=== PATIENT | female | born 2000 | race Two or more races ===

== ENCOUNTER → 2024-10-05 | Outpatient (CLI) | payer MEDICAID ==
[2024-10-05 12:41] LABS: Basophils # (auto) 0 10 ^3/uL (0-0.2); Basophils % (auto) 0.2 % (0.0-2.0); Eosinophils # (auto) 0 10 ^3/uL (0-0.8); Eosinophils % (auto) 0.3 % (0.0-7.0); Hematocrit 40.3 % (36.0-46.0); Hemoglobin 13.7 g/dL (12.2-16.2); Lymphocytes # (auto) 1.6 10 ^3/uL (0.4-5.4); Lymphocytes % (auto) 15.2 % (10.0-50.0); Mean Corpuscular Hemoglobin 29.7 pg (28.0-32.0); Mean Corpuscular Volume 87.5 fL (80.0-100.0); Monocytes # (auto) 0.4 10 ^3/uL (0-1.3); Neutrophils # (auto) 8.4 10 ^3/uL (1.6-8.6); Neutrophils % (auto) 80.3 % (37.0-80.0); Platelet Count (auto) 346 10^3/uL (140-450); Red Cell Distribution Width 13.3 % (11.8-14.3); White Blood Cell 10.5 10^3/uL (4.4-10.8)
[2024-10-05 12:43] LABS: Thyroid Stimulating Hormone 1.26 uIU/mL (0.55-4.78)
[2024-10-05 12:46] LABS: Alanine Aminotransferase 12 U/L (7-40); Alkaline Phosphatase 49 U/L (46-116); Anion Gap 10 (5-15); BUN/Creatinine Ratio 11.1 (10.0-20.0); Calcium 9.9 mg/dL (8.7-10.4); Carbon Dioxide 25 mmol/L (20-31); Chloride 103 mmol/L (98-107); Glucose 78 mg/dL (74-106); Sodium 138 mmol/L (136-145)
[2024-10-05 12:47] LABS: Albumin 4.7 g/dL (3.2-4.8); Aspartate Aminotransferase 14 U/L (13-40); Bilirubin, Total 0.4 mg/dL (0.2-1.0); Total Protein 7.3 g/dL (5.7-8.2)
[2024-10-05 12:49] LABS: Blood Urea Nitrogen 7 mg/dL (9-23); Potassium 3.4 mmol/L (3.5-5.1)
[2024-10-05 12:52] LABS: Beta HCG, Quantitative > 200000.0 mIU/mL (1.5-4.2)
[2024-10-06 07:07] LABS: RPR Non Reactive (Non Reactive); Varicella Zoster IgG Antibody Reactive (Non Reactive)
[2024-10-06 15:45] LABS: Triglycerides 75 mg/dL (< 150)
[2024-10-06 15:46] LABS: Cholesterol 180 mg/dL (< 200)
[2024-10-06 15:47] LABS: HDL Cholesterol 55 mg/dL (40-59)
[2024-10-06 15:53] LABS: LDL Cholesterol 119 mg/dL (< 100)
[2024-10-06 16:14] LABS: Opiate Scree,Urine Neg (NEGATIVE)
[2024-10-06 16:15] LABS: Amphetamine Screen, Urine Neg (NEGATIVE); Barbiturate Scree,Urine Neg (NEGATIVE); Benzodiazephine Screen, Urine Neg (NEGATIVE); Cannabinoid Screen, Urine Neg (NEGATIVE); Cocaine Screen, Urine Neg (NEGATIVE); Phencyclidine Screen, Urine Neg (NEGATIVE)
[2024-10-07 00:07] LABS: Chlamydia Trachomatis, NAA Negative (Negative); Neisseria gonorrhoeae, NAA Negative (Negative)
== END | disposition home or self-care (01) ==
LOC: LAB 11:14
PROVIDERS: ATTEND Obstetrics & Gynecology
DX: O23.40 Unspecified infection of urinary tract in pregnancy, unspecified trimester (principal); Z31.430 Encounter of female for testing for genetic disease carrier status for procreative management; Z36.0 Encounter for antenatal screening for chromosomal anomalies; N39.0 Urinary tract infection, site not specified; Z3A.00 Weeks of gestation of pregnancy not specified
CPT/HCPCS: 36415; 80053; 80061; 80307; 83036; 84439; 84443; 84702; 85025; 86592; 86703; 86762; 86787; 86850; 86900; 86901; 87086; 87340; 87902

== ENCOUNTER 2025-04-03 12:30 | Observation (INO) | payer MEDICAID ==
[~2025-04-03] VITALS: Ht 160 cm; Wt 59.0 kg
[2025-04-03] MEDS ORDERED: PREN-96 PO (13:55)
[2025-04-03] MEDS ORDERED: ACETAMINOPHEN 500 MG TAB or CAP PO ONE (14:15)
[2025-04-03 14:27] LABS: Vaginal Bacteria Few; Vaginal Clue Cells Few; Vaginal Epithelial Cells Few; Vaginal Trichomonas Not Present
[2025-04-03 14:28] LABS: Urine Protein, UAD 1+ (Negative)
--- NOTE | 2025-04-03 14:43 | DVH ---
EXAM DESCRIPTION: Chest 1 View CLINICAL HISTORY: Fever of unknown origin COMPARISON: None FINDINGS and IMPRESSION: Lines, tubes, and support devices: None. Lungs / Pleura: No consolidation. No pleural effusion. No pneumothorax. Mediastinum: Normal cardiomediastinal silhouette. Osseous structures / Soft tissues: No acute findings.
[2025-04-03 15:17] LABS: Hematocrit 36.1 % (36.0-46.0); Hemoglobin 12.4 g/dL (12.2-16.2); Mean Corpuscular Hemoglobin 30.5 pg (28.0-32.0); Mean Corpuscular Volume 88.7 fL (80.0-100.0); Nucleated Red Blood Cells % 0.0 %
[2025-04-03] MEDS: LACTATED RINGER'S 1,000 ML IV ONE (15:18)
[2025-04-03 15:20] VITALS: TEMP 102
[2025-04-03] MEDS: ACETAMINOPHEN 500 MG TAB or CAP PO ONE (15:20)
--- NOTE | 2025-04-03 15:20 | DVH ---
EXAM DESCRIPTION: US OB ULTRASOUND COMP GTR 14 WKS CLINICAL HISTORY: tachycardia COMPARISON: None TECHNIQUE: Multiple real-time and static images of the gravid uterus were obtained utilizing color Doppler vascu larity when appropriate. FINDINGS: A single viable fetus is identified in a cephalic presentation. The presenting part is the head . The placenta is in a anterior location. There is no evidence of placenta previa. The amniotic fluid volume is normal. The amniotic fluid index is 20.6 cm. The cervical length is 4.0 cm. BPD 8.3 cm - 33 weeks 2 days Head circumference 28.8 cm - 31 weeks 5 days Body circumference 27.3 cm - 31 weeks 2 days Femur length 6.0 cm - 31 weeks 2 days. The estimated body weight is 1778 g. The heart rate is 163 bpm and the cardiac rhythm is normal. The average sonographic gestational age is 31 weeks and 6 days. IMPRESSION: 1. Single viable intrauterine of 31 weeks and 6 days by sonographic criteria. 2. Ultrasonically estimated date of confinement is 05/30/25. 3. No evidence of placenta previa or abruption.
--- NOTE | 2025-04-03 15:25 | DVH ---
BIOPHYSICAL PROFILE HISTORY: Tachycardia TECHNIQUE: Multiple transabdominal real-time grayscale sonographic images through the gravid uterus o f the fetus with duplex doppler color flow and M-mode spectral analysis FINDINGS: BIOPHYSICAL PROFILE: breathing score: 2 movement score: 2 tone score: 2 Quantitative NIGHAT score: 2 (NIGHAT: 20.6 cm.) Total score: 8/8 Single live fetus in cephalic presentation. heart rate 159-171 beats per minute. Anterior placenta without previa or abruption Biophysical profile score 8/8 corresponding to an DB of 05/20/25 IMPRESSION: Biophysical profile score: 8/8
[2025-04-03 15:31] LABS: Alanine Aminotransferase 12 U/L (7-40); Albumin 3.5 g/dL (3.2-4.8); Alkaline Phosphatase 107 U/L (46-116); Anion Gap 11 (5-15); Bilirubin, Total 0.4 mg/dL (0.2-1.0); Carbon Dioxide 21 mmol/L (20-31); Chloride 104 mmol/L (98-107); Potassium 3.7 mmol/L (3.5-5.1)
[2025-04-03 15:40] LABS: Glucose 73 mg/dL (74-106); Sodium 136 mmol/L (136-145)
[2025-04-03 15:41] LABS: BUN/Creatinine Ratio 10.4 (10.0-20.0); Blood Urea Nitrogen < 5 mg/dL (9-23); Calcium 8.4 mg/dL (8.7-10.4); Total Protein 5.7 g/dL (5.7-8.2)
[2025-04-03] MEDS ORDERED: CEPH500C PO (16:02)
[2025-04-03] MEDS ORDERED: MET500T PO (16:03)
[2025-04-03] MEDS: cefTRIAXone 1GM/50ML D5W 50 ML IV ONE (16:14)
--- NOTE | 2025-04-03 18:01 | DVHDS2 ---
Physician Discharge Progress N Final Diagnosis: Acute Cystitis Febrile illness Secondary Diagnosis: bacterial vaginosis Operations or Procedures: Operations or Procedures NST, OB ultrasound, BPP CXR IV fluids labs Condition on Discharge: Good Disposition: Home Discharge Instructions: Diet: Regular Activity: No Restrictions, As Tolerated Follow Up/Referral: as scheduled Medications: IV Rocephin given 1gm x 1 dose, rx to home with Keflex 500mg QID x 7d. Follow Up Care: Discharge Statement: "Patient was advised to return to the ER or call 911 if any headaches, dizziness, shortness of breath, chest pain, abdominal pain, bleeding, fevers, or worsening of medical condition. Patient was counseled about treatment plan, medications, possible side effects, patientverbalized understanding. All questions were answered to the best of my ability. This discharge took greater then 30 minutes in planning, reviewing documentation, counseling the patient, and discussing with other team members." Visit Coding OBGYN Date of Service: Apr 03, 2025 Billing Provider: SHIREEN TAM DO GUI DEVELOPER Common Visit Codes: [id number] INP/OBS CARE (HIGH) GUI DEVELOPER Procedure Codes: 73759-66- NON-STRESS TEST SHIREEN TAM DO Apr 03, 2025 18:01
== END 2025-04-03 17:18 | disposition home or self-care (01) ==
LOC: LDRP 12:30 → UNDOADMOB 12:30 → OVERFLOW 12:30
PROVIDERS: ADMIT Obstetrics & Gynecology; ATTEND Obstetrics & Gynecology
DX: O23.13 Infections of bladder in pregnancy, third trimester (principal); N30.00 Acute cystitis without hematuria; B96.89 Other specified bacterial agents as the cause of diseases classified elsewhere; Z3A.33 33 weeks gestation of pregnancy; Z79.899 Other long term (current) drug therapy; Z98.890 Other specified postprocedural states
CPT/HCPCS: 36415; 59025; 71045; 76805; 76819; 80053; 81001; 81002; 85025; 87040; 87086; 87210; 94760; 96360; 96361; G0378; J0696; J7030

== ENCOUNTER 2025-04-06 20:34 | Observation (INO) | payer MEDICAID ==
[~2025-04-06 20:34] MED LIST: CEPH500C PO; MET500T PO; PREN-96 PO
--- NOTE | 2025-04-06 21:18 | DVHDS2 ---
Physician Discharge Progress N Final Diagnosis: BV/UTI Operations or Procedures: Operations or Procedures S: 24yo IUP@33.5wks presents to OB triage with c/o constant vaginal burning after being dx with BV/UTI on Saturday04/03/25 when she received IV rochephin and had a fever. Taking flagyl/keflex/azo. +FM, denies UCs/LOF/VB. PNC with FARHAT Grossman at [facility] office, uncomplicated. O: VSS, afebrile urine culture ordered NST reactive Negative for CVA tenderness bilaterally Laboratory Tests Test 04/06/25 21:20 04/06/25 21:25 Range/Units Chlamydia trachomatis (DELONTE) Pending Neisseria gonorrhoeae (DELONTE) Pending Vaginal WBC (Wet Prep) Moderate Vaginal RBC (Wet Prep) Few Vaginal Epithelial Cells (Wet Prep) Moderate Vaginal Bacteria (Wet Prep) Moderate Vaginal Trichomonas (Wet Prep) Not present Vaginal Yeast (Wet Prep) None seen Vaginal Clue Cells (Wet Prep) None seen A: 24yo IUP@33.5wks BV UTI P: D/C home Recommended taking daily OTC womens probiotic supplement. FKC/PTL precautions reviewed f/u with Anupama at [facility] OB on 04/12/25 Dr. Mills consulted, agrees with POC. Other Interventions Other Interventions [place] [id number] Ph: [phone] DIAGNOSTIC IMAGING Diagnostic Imaging Report : [id number] Signed PATIENT: NUPUR TAYLOR HACCT: [id number] UNIT: [id number] : 2000 LOC: [facility] ROOM / BED: TRIAGE1 / A AGE / SEX: 24 / F ADM STATUS: ADM IN SERVICE 15 ORDERING PHYSICIAN: GISSELLE ROSARIO CNM PROCEDURE(s): KIDUS - KIDNEY REASON: bilateral kidney sono to rule out kidney stones ORDER NUMBER(s): [id number], ACCESSION NUMBER(s): [id number] INDICATION: bilateral kidney sono to rule out kidney stones TECHNIQUE: Multiple real-time sonographic images of the kidneys and bladder were obtained. COMPARISON: None FINDINGS: The right kidney measures 9.8 cm in length, which is normal in size. There is normal echogenicity of the right kidney. No hydronephrosis. The left kidney measures 9.1 cm in length, which is normal in size. There is normal echogenicity of the left kidney. No hydronephrosis. Contracted appearance of the bladder. IMPRESSION: 1. No acute sonographic abnormality identified. ATED BY: NIKHIL ELLIOTT MD DICTATED DATE/TIME: 04/06/252205 SIGNED BY: NIKHIL ELLIOTT MD SIGNED DATE/TIME: 04/06/252205 CC: Condition on Discharge: Stable Disposition: Home Discharge Instructions: Diet: Regular Activity: No Restrictions, As Tolerated Medications: see med list Follow Up Care: Specialist: f/u giovani Altman at [facility] on 04/12/25 Discharge Statement: "Patient was advised to return to the ER or call 911 if any headaches, dizziness, shortness of breath, chest pain, abdominal pain, bleeding, fevers, or worsening of medical condition. Patient was counseled about treatment plan, medications, possible side effects, patientverbalized understanding. All questions were answered to the best of my ability. This discharge took greater then 30 minutes in planning, reviewing documentation, counseling the patient, and discussing with other team members." Visit Coding OBGYN Date of Service: Apr 07, 2025 Billing Provider: GISSELLE ROSARIO CNM STAFF ANESTHETIST Common Visit Codes: 30326-ISVWPAE OBS CARE (HIGH) STAFF ANESTHETIST Procedure Codes: 34314-34- NON-STRESS TEST GISSELLE ROSARIO CNM Apr 06, 2025 21:18
--- NOTE | 2025-04-06 22:09 | DVH ---
INDICATION: bilateral kidney sono to rule out kidney stones TECHNIQUE: Multiple real-time sonographic images of the kidneys and bladder were obtained. COMPARISON: None FINDINGS: The right kidney measures 9.8 cm in length, which is normal in size. There is normal echoge nicity of the right kidney. No hydronephrosis. The left kidney measures 9.1 cm in length, which is normal in size. There is normal echogenicity of t he left kidney. No hydronephrosis. Contracted appearance of the bladder. IMPRESSION: 1. No acute sonographic abnormality identified.
[2025-04-06 22:14] LABS: Vaginal Bacteria Moderate; Vaginal Clue Cells None Seen; Vaginal Epithelial Cells Moderate; Vaginal Trichomonas Not Present
[2025-04-08 15:07] LABS: Chlamydia Trachomatis, NAA Negative (Negative); Neisseria gonorrhoeae, NAA Negative (Negative)
== END 2025-04-06 23:33 | disposition home or self-care (01) ==
LOC: LDRP 20:34
PROVIDERS: ADMIT Obstetrics & Gynecology; ATTEND Obstetrics & Gynecology
DX: O23.43 Unspecified infection of urinary tract in pregnancy, third trimester (principal); N39.0 Urinary tract infection, site not specified; O23.593 Infection of other part of genital tract in pregnancy, third trimester; B96.89 Other specified bacterial agents as the cause of diseases classified elsewhere; Z3A.33 33 weeks gestation of pregnancy; Z98.890 Other specified postprocedural states; Z79.899 Other long term (current) drug therapy
CPT/HCPCS: 59025; 76775; 81002; 87086; 87210; 87491; 87591; 94760; G0378

== ENCOUNTER → 2025-04-16 | Outpatient (CLI) | payer MEDICAID ==
[2025-04-16 11:33] LABS: Hematocrit 36.8 % (36.0-46.0); Hemoglobin 12.9 g/dL (12.2-16.2); Mean Corpuscular Hemoglobin 31.0 pg (28.0-32.0); Mean Corpuscular Volume 88.5 fL (80.0-100.0); Nucleated Red Blood Cells % 0.0 %
[2025-04-18 00:10] LABS: Chlamydia Trachomatis, NAA Negative (Negative); Neisseria gonorrhoeae, NAA Negative (Negative)
== END | disposition home or self-care (01) ==
LOC: LAB 11:13
DX: Z34.80 Encounter for supervision of other normal pregnancy, unspecified trimester (principal); Z3A.00 Weeks of gestation of pregnancy not specified
CPT/HCPCS: 36415; 85025; 86780

== ENCOUNTER 2025-05-12 08:52 | Inpatient (IN) | payer MEDICAID ==
[~2025-05-12] VITALS: Ht 162.6 cm; Wt 61.7 kg
[2025-05-12 11:39] LABS: Hematocrit 38.5 % (36.0-46.0); Hemoglobin 13.1 g/dL (12.2-16.2); Mean Corpuscular Hemoglobin 30.1 pg (28.0-32.0); Mean Corpuscular Volume 88.6 fL (80.0-100.0); Nucleated Red Blood Cells % 0.1 %
[2025-05-12 11:42] LABS: Urine Protein, UAD 1+ (Negative)
[2025-05-12 11:53] LABS: INR 0.92 (0.9-1.15); Partial Thromboplastin Time 28.5 SEC (24.5-34.5); Prothrombin Time 9.8 sec (9.3-11.8)
[2025-05-12 11:57] LABS: Alanine Aminotransferase 9 U/L (7-40); Albumin 3.7 g/dL (3.2-4.8); Alkaline Phosphatase 160 U/L (46-116); Anion Gap 12 (5-15); BUN/Creatinine Ratio 8.8 (10.0-20.0); Bilirubin, Total 0.3 mg/dL (0.2-1.0); Blood Urea Nitrogen < 5 mg/dL (9-23); Calcium 8.9 mg/dL (8.7-10.4); Carbon Dioxide 22 mmol/L (20-31); Chloride 105 mmol/L (98-107); Glucose 114 mg/dL (74-106); Potassium 3.3 mmol/L (3.5-5.1); Sodium 139 mmol/L (136-145); Total Protein 6.4 g/dL (5.7-8.2)
[2025-05-12 14:51] LABS: Amphetamine Screen, Urine Neg (NEGATIVE); Barbiturate Scree,Urine Neg (NEGATIVE); Benzodiazephine Screen, Urine Neg (NEGATIVE); Cannabinoid Screen, Urine Neg (NEGATIVE); Cocaine Screen, Urine Neg (NEGATIVE); Opiate Scree,Urine Neg (NEGATIVE); Phencyclidine Screen, Urine Neg (NEGATIVE)
--- NOTE | 2025-05-13 15:12 | DVHHP ---
ADMIT DATE: 05/14/2025 CHIEF COMPLAINT: Desires repeat section. HISTORY OF PRESENT ILLNESS: The patient is a 1, para 1 female with an EDC of 05/20, estimated gestational age of 39 weeks, admitted as needed for repeat section. The patient denies having any vaginal bleeding or rupture of membranes. PAST MEDICAL HISTORY: None. PAST SURGICAL HISTORY: . SOCIAL HISTORY: None. FAMILY HISTORY: None. PAST SURGICAL HISTORY: x 1. REVIEW OF SYSTEMS: Consistent with HPI. PHYSICAL EXAMINATION: VITAL SIGNS: Stable, afebrile. HEENT: Within normal limits. CARDIOVASCULAR: Regular rate and rhythm. LUNGS: Clear to auscultation. BREASTS: Symmetrical, no masses. ABDOMEN: Gravid. Positive heart. PELVIC: Deferred. EXTREMITIES: No clubbing, cyanosis, or edema. IMPRESSION: * Intrauterine at 39 weeks. * Desires repeat section. * Previous section x 1. PLAN: Repeat section. Informed consent obtained. Risks and complications of surgery including infection, bleeding, hematoma formation, injury to bowel or bladder, surrounding organ, possibility of DVT, pulmonary embolism, and risks of anesthesia were discussed with the patient. Options reviewed. All questions answered. The patient fully understands. She wishes to proceed with the planned procedure. DO JOSE Cox TID: [id number] RECEIPT: [id number]
[2025-05-14] VITALS (9 sets, daily range): BP systolic 105–122; BP diastolic 56–81; PULSE 69–81; RESP 12–18; TEMP 98–98.1; O2SAT 95–98
[2025-05-14] MEDS ORDERED: DOCU-94 PO (04:33)
[2025-05-14] MEDS ORDERED: HYDR-4072 PO (04:33)
[2025-05-14] MEDS ORDERED: IBUP-1456 PO (04:33)
[2025-05-14] MEDS: LACTATED RINGER'S 1,000 ML IV SCH ×2 (05:00→05:40)
[2025-05-14] MEDS ORDERED: MORPHINE SULF PF 5 MG/10 ML VIAL ONE ×2 (07:16→12:52)
[2025-05-14] MEDS ORDERED: fentaNYL CITRATE 100 MCG/2 ML VL ONE ×2 (07:16→12:46)
[2025-05-14] MEDS ORDERED: BUPIVACAINE/DEXTROSE MPF 0.75% 2 ML AMP IT ONE ×2 (07:17→12:46)
[2025-05-14] MEDS ORDERED: MIDAZOLAM HCL 2MG/2ML 2ml VIAL (1mg/ml) ONE (07:17)
[2025-05-14] MEDS ORDERED: SODIUM CHLORIDE LOCK 0 ML ONE (07:17)
[2025-05-14] MEDS ORDERED: ONDANSETRON HCL 4 MG/2 ML VIAL ONE (12:46)
[2025-05-14] MEDS ORDERED: diphenhdrAMINE HCL 50 MG/1 ML VL ONE (12:51)
[2025-05-14] MEDS: ceFAZolin 2 GM/D5W50ml 50 ML IV ONE (13:52)
[2025-05-14] MEDS ORDERED: PHENYLEPHRINE HCL 10 MG/ML VL ONE (14:19)
[2025-05-14] MEDS ORDERED: SODIUM CHLORIDE LOCK 10 ML ONE (14:19)
--- NOTE | 2025-05-14 14:40 | DVHOP2 ---
Operative Report DATE OF OPERATION: 05/14/25 PREOPERATIVE DIAGNOSES: Term DESIRES RCS ,PREVIOUS CSX1 POSTOPERATIVE DIAGNOSES: SAME,IUGR SURGEON: Erinn Hernandez D.O./MECHE ANESTHESIOLOGIST: HERNESTO GIBSON TYPE OF ANESTHESIA : SPINAL CONSENT: The patient was informed of the risks and benefits of the procedure. The patient was informed of the risks and benefits of the procedure. These include but are not limited to , complications of anesthesia, postoperative infection, incomplete relief of symptoms, recurrence of symptoms, damage to blood vessels, nerves and tendons, deep venous thrombosis, pulmonary embolism and possible need for repeat surgery in the future. FINDINGS: Baby [B] with Apgars of [8] and [9]. Grossly normal appearing tubes and ovaries.VX PROCEDURES: Primary low transverse section. PROCEDURE IN DETAIL: The patient was taken to the operating room. She already had an epidural in place. She was then placed in supine position with a lef tward tilt. A Pfannenstiel skin incision was made 2 cm above the symphysis pubis. This incision was carried to the underlying layer of fascia. The fascia was nicked in the midline. The incision was extended laterally. The superior aspect of the fascial incision was grasped and elevated. The same procedure was done to the inferior aspect of the fascial incision. The rectus muscles were then in the midline. Peritoneum was identified and entered. Peritoneal incision was extended superiorly and inferiorly with good visualization of the bladder. Bladder blade was inserted. Vesicouterine peritoneum was identified and entered. Lower uterine segment was incised in a transverse fashion. The was delivered from vertex presentation. was baby [B] with Apgars [8] and [9]. Placenta was then removed manually. Uterus was exteriorized and cleared of all clots and debris. The incision was repaired using 0 Vicryl in a double-layered fashion. No bleeding was noted. Uterus was then returned to the abdomen. The gutters were cleared off all clots and debris. Peritoneum was closed using 0 Vicryl, fascia was closed using 0 Maxon, and skin was closed using elyse. The patient tolerated the procedure well. She was taken to the recovery room in stable condition. ESTIMATED BLOOD LOSS: Estimated blood loss was noted to be 500 mL. Visit Coding OBGYN Date of Service: May 14, 2025 Billing Provider: ERINN HERNANDEZ DO STRUCTURAL ENGINEER Common Visit Codes: [id number] INP/OBS CARE (HIGH) STRUCTURAL ENGINEER Procedure Codes: 35601-KYK DELIVERY ONLY, 46732-[id number] DELIVERY ONLY ERINN HERNANDEZ DO May 14, 2025 14:40
--- NOTE | 2025-05-14 14:41 | POSTOP ---
Post-Operative Note Post-Operative Note Preop Diagnosis TERM PREG DSIRES RCS,PREVIOUS CSX1 Postop Diagnosis: SAME,IUGR Operation performed RCS Specimen BABY BOY,APGARS 8-9,VX Anesthesia: Regional Anesthesiologist: HERNESTO PIERCE Blood Loss(fluid mgmt) 500ML Surgeon Anirudh Mills Motorized Squad Sergeant MECHE Implant NA Complications & Mgmt NONE Date 05/14/25 Time 14:40 Visit Coding OBGYN Date of Service: May 14, 2025 Billing Provider: ANIRUDH MILLS DO TEAM PSYCHOLOGIST Common Visit Codes: 98009-[id number] INP/OBS CARE (HIGH) TEAM PSYCHOLOGIST Procedure Codes: [id number] DELIVERY ONLY ANIRUDH MILLS DO May 14, 2025 14:41
[2025-05-14] MEDS: CARBOPROST TROMETHAMINE 250 MCG/1ML VIAL IM ONE (14:44)
[2025-05-14] MEDS: GUM (CHEWING) 1 GUM CHEW CHEW ONE (14:45)
[2025-05-14] MEDS ORDERED: ONDANSETRON HCL 4 MG/2 ML VIAL IV PRN ×2 (14:45→16:15)
[2025-05-14] MEDS: LACT. RINGERS/OXYTOCIN 20UNITS 1,000 ML IV ONE (14:45)
[2025-05-14] MEDS: DIPHENOXYLATE W/ATROPINE 2.5 MG TAB ONE ×2 (15:06→15:11)
[2025-05-14] MEDS: ONDANSETRON HCL 4 MG/2 ML VIAL ONE (15:12)
[2025-05-14] MEDS: DIPHENOXYLATE W/ATROPINE 2.5 MG TAB PO ONE ×2 (15:14→15:16)
[2025-05-14] MEDS: NALBUPHINE HCL 10 MG/1ml INJECTION IV ONE (15:15)
[2025-05-14] MEDS ORDERED: HYDROmorphone HCL 2 MG/ML VL/or syr IV PRN (15:15)
[2025-05-14] MEDS ORDERED: NALOXONE HCL 0.4 MG/ML VIAL IV PRN (15:15)
[2025-05-14] MEDS: ONDANSETRON HCL 4 MG/2 ML VIAL IV PRN (15:16)
[2025-05-14] MEDS ORDERED: LACTATED RINGER'S 1,000 ML IV SCH (16:15)
[2025-05-14] MEDS ORDERED: ACETAMINOPHEN IV 1000 MG/100ML (10MG/ML) IV PRN (16:15)
[2025-05-14] MEDS ORDERED: diphenhdrAMINE HCL 50 MG/1 ML VL IV PRN (18:30)
[2025-05-14] MEDS: ceFAZolin 1GM/50ML 50 ML IV SCH (21:58)
[2025-05-14] MEDS ORDERED: ceFAZolin 1GM/50ML 50 ML IV SCH (22:00)
[2025-05-14 22:17] LABS: Hematocrit 43.1 % (36.0-46.0); Hemoglobin 14.8 g/dL (12.2-16.2); Mean Corpuscular Hemoglobin 30.8 pg (28.0-32.0); Mean Corpuscular Volume 90.1 fL (80.0-100.0); Nucleated Red Blood Cells % 0.0 %
[2025-05-15] VITALS (17 sets, daily range): BP systolic 85–131; BP diastolic 46–68; PULSE 68–95; RESP 16–18; TEMP 98.2; O2SAT 95–98
[2025-05-15] MEDS: diphenhdrAMINE HCL 50 MG/1 ML VL IV PRN (02:56)
--- NOTE | 2025-05-15 06:27 | DVHPN2 ---
Progress Note Date Seen: May 15, 2025 Yvette Azevedo was resting comfortably in L tilt upon entry to room. States she got good rest last night and is feeling optimistic about her delivery and course. Would like to eat regular diet and has been tolerating clears. -Lochia minimal -Clear diet well tolerated. -Ambulating and voiding well w/o feeling dizzy or lightheaded -Pain relieved with oral medication PRN -No flatus or BM yet. -Combo feeding w/o problem vital signs Vital Sign Date Time Temp Pulse Resp B/P (MAP) Pulse Ox O2 Delivery O2 Flow Rate FiO2 05/15/25 05:00 71 18 110/59 (76) 96 05/15/25 03:00 98.2 98.2 05/14/25 19:00 Room Air 05/14/25 14:55 0 05/14/25 14:55 97 Total Intake and Output 05/14/25 05/14/25 05/15/25 15:00 23:00 07:00 Output Total 900 ml 1750 ml Balance -900 ml -1750 ml medications Current Medications Medications Dose Ordered Sig/Nba Route Start Time Stop Time Status Last Admin Dose Admin Lactated Ringer's 1,000 ml @ 125 mls/hr Q8H IV 05/14/25 05:00 Cefazolin Sodium 50 ml @ 100 mls/hr Q8HR IV 05/14/25 22:00 05/15/25 14:29 05/15/25 05:47 100 MLS/HR Diphenhydramine HCl 25 mg Q4HP PRN IV 05/14/25 15:15 05/15/25 02:56 25 MG Ondansetron HCl 4 mg Q4HP PRN IV 05/14/25 16:15 Ephedrine Sulfate 10 mg [id number] PRN IV 05/14/25 16:15 05/15/25 16:14 Acetaminophen 1,000 mg Q8HPRN PRN IV 05/14/25 16:15 05/15/25 16:14 Diphenhydramine HCl 50 mg Q4HP PRN IV 05/14/25 18:30 laboratory and microbiology Laboratory Tests 05/14/25 21:55 05/12/25 11:17 Test 05/12/25 11:17 Range/Units Serum Glucose 114 H 74-106 mg/dL Objective -A&O x4. No apparent distress. Affect appropriate -Afebrile, VSS -Chest: heart and lung sounds normal. -Breasts: Nipples intact w/o cracks or soreness -Abdomen: normal BS, soft, non-tender, no rebound or guarding, fundus firm @ U- 1, -Lower abdominal incision site with dressing dry and intact. No edema, erythema or induration -Extremities: no edema or tenderness Problems(with codes): (1) Status post delivery Assessment/Plan ASSESSMENT: 24 yo now Post operative & ppd # 1 s/p repeat Section, doing well. Blood Type: AB+ Combo feeding Rubella Immune PLAN: -Continue pain management with oral medications as previously ordered -Diet switched to regular diet -Increase fluid intake and fiber in diet to promote regular bowel movements, Laxative PRN -Educated patient on self-care and warning signs to watch for, including PPH, PPD, infection, and pre-eclampsia. Answered all patient questions and concerns. Patient verbalized understanding. -Continue routine care Plan discussed with: Patient Visit Coding OBGYN Date of Service: May 15, 2025 Billing Provider: ASHLI MARIE CNM LOCKSTITCH LINING SETTER Common Visit Codes: [id number] INP/OBS CARE(HIGH) ASHLI MARIE CNM May 15, 2025 06:27
[2025-05-15 09:08] LABS: Hematocrit 37.8 % (36.0-46.0); Hemoglobin 12.7 g/dL (12.2-16.2); Mean Corpuscular Hemoglobin 30.3 pg (28.0-32.0); Mean Corpuscular Volume 90.3 fL (80.0-100.0); Nucleated Red Blood Cells % 0.0 %
[2025-05-15] MEDS: HYDROcodone-ACET 5/325MG TAB PO PRN ×2 (14:12→22:18)
[2025-05-15] MEDS ORDERED: [UNRECOGNIZED DRUG - OTHER] IV ONE (14:45)
[2025-05-15] MEDS ORDERED: CLINDAMYCIN IV ONE (14:45)
[2025-05-15] MEDS: SIMETHICONE 80 MG CHEWABLE TABLET PO SCH (17:54)
[2025-05-15] MEDS: IBUPROFEN 800 MG TAB PO PRN (20:20)
[2025-05-15] MEDS: DOCUSATE SOD 100 MG CAP PO SCH (22:18)
--- NOTE | 2025-05-16 01:03 | DVHPN2 ---
Progress Note Date Seen: May 16, 2025 Subjective S: Lochia minimal. Regular diet well tolerated. Ambulating and voiding well w/o feeling dizzy or lightheaded. Pain relieved with oral analgesics. Passing flatus but no BM yet. w/o problem Desires and Requests to be discharged today vital signs Vital Sign Date Time Temp Pulse Resp B/P (MAP) Pulse Ox O2 Delivery O2 Flow Rate FiO2 05/15/25 23:11 98.2 82 17 109/68 (82) 98 98.2 05/15/25 18:30 Room Air 05/14/25 14:55 0 05/14/25 14:55 97 Total Intake and Output 05/15/25 05/15/25 05/16/25 15:00 23:00 07:00 Output Total 725 ml 950 ml Balance -725 ml -950 ml medications Current Medications Medications Dose Ordered Sig/Nba Route Start Time Stop Time Status Last Admin Dose Admin Lactated Ringer's 1,000 ml @ 125 mls/hr Q8H IV 05/14/25 05:00 Ondansetron HCl 4 mg Q4HP PRN IV 05/14/25 16:15 Diphenhydramine HCl 50 mg Q4HP PRN IV 05/14/25 18:30 Docusate Sodium 100 mg Q12HR PO 05/15/25 22:00 05/15/25 22:18 100 MG Dimethicone 80 mg QID PO 05/15/25 18:00 05/15/25 22:18 80 MG Ibuprofen 800 mg Q8HP PRN PO 05/15/25 14:00 05/15/25 20:20 800 MG Acetaminophen/ Hydrocodone Bitart 1 tab Q4HPRN PRN PO 05/15/25 14:00 05/15/25 22:18 1 TAB Acetaminophen/ Hydrocodone Bitart 2 tab Q4HPRN PRN PO 05/15/25 14:00 05/15/25 17:55 2 TAB laboratory and microbiology Laboratory Tests 05/15/25 08:27 05/12/25 11:17 Test 05/12/25 11:17 Range/Units Serum Glucose 114 H 74-106 mg/dL Objective A&O x3 NAD. Afebrile, VSS Chest: heart and lung sounds normal. Breasts: Nipples intact w/o cracks or soreness Abdomen: normal BS, soft, non-tender, no rebound or guarding, fundus firm @ U- 1, Lower abdominal Incision site with Sylke dressing on, same clean, dry and intact. No edema, erythema or induration Extremities: no edema, no calf pain or tenderness Lochia - minimal Problems(with codes): (1) Status post delivery Assessment/Plan A/P: Ms Miller, isabela 24yo now . Post operative & ppd #2 s/p Repeat Section doing well. Blood Type:AB Rh: Positive Breast feeding and Formula feeding Rubella Immune Pain control with oral medications Bowel regimen: Increase fluid intake and fiber in diet, Laxative PRN PP BCM Plan: OCP Discharge plan: May discharge home later today if condition remains stable Plan discussed with: Patient, Spouse Visit Coding OBGYN Date of Service: May 16, 2025 Billing Provider: HARJINDER IRELAND CNM LANE MARKER INSTALLER Common Visit Codes: [id number] INP/OBS CARE(HIGH) HARJINDER IRELAND CNM May 16, 2025 01:03
--- NOTE | 2025-05-16 01:05 | DVHDS2 ---
Discharge Summary Date of Admission May 14, 2025 at 03:56 Date of Discharge: May 16, 2025 Admitting Diagnosis IUP at 39w 1d h/o Section Desires repeat Section Labs/Diagnostic Data: Laboratory Results Test 05/15/25 08:27 05/12/25 11:17 05/12/25 10:50 White Blood Count 19.0 10^3/uL (4.4-10.8) Red Blood Count 4.18 10^6/uL (4.0-5.20) Hemoglobin 12.7 g/dL (12.2-16.2) Hematocrit 37.8 % (36.0-46.0) Mean Corpuscular Volume 90.3 fL (80.0-100.0) Mean Corpuscular Hemoglobin 30.3 pg (28.0-32.0) Mean Corpuscular Hemoglobin Concent 33.5 g/dL (32.0-36.0) Red Cell Distribution Width 13.7 % (11.8-14.3) Platelet Count 208 10^3/uL (140-450) Mean Platelet Volume 9.9 fL (6.9-10.8) Neutrophils (%) (Auto) 86.1 % (37.0-80.0) Lymphocytes (%) (Auto) 9.1 % (10.0-50.0) Monocytes (%) (Auto) 4.6 % (0.0-12.0) Eosinophils (%) (Auto) 0.1 % (0.0-7.0) Basophils (%) (Auto) 0.1 % (0.0-2.0) Neutrophils # (Auto) 16.4 10 ^3/uL (1.6-8.6) Lymphocytes # (Auto) 1.7 10 ^3/uL (0.4-5.4) Monocytes # (Auto) 0.9 10 ^3/uL (0-1.3) Eosinophils # (Auto) 0 10 ^3/uL (0-0.8) Basophils # (Auto) 0 10 ^3/uL (0-0.2) Nucleated Red Blood Cells 0.0 % Prothrombin Time 9.8 sec (9.3-11.8) Prothrombin Time INR 0.92 (0.9-1.15) Activated Partial Thromboplast Time 28.5 SEC (24.5-34.5) Sodium Level 139 mmol/L (136-145) Potassium Level 3.3 mmol/L (3.5-5.1) Chloride Level 105 mmol/L (98-107) Carbon Dioxide Level 22 mmol/L (20-31) Anion Gap 12 (5-15) Blood Urea Nitrogen < 5 mg/dL (9-23) Creatinine 0.57 mg/dL (0.550-1.02) Glomerular Filtration Rate Calc 129 mL/min (>90) BUN/Creatinine Ratio 8.8 (10.0-20.0) Serum Glucose 114 mg/dL (74-106) Calcium Level 8.9 mg/dL (8.7-10.4) Total Bilirubin 0.3 mg/dL (0.2-1.0) Aspartate Amino Transferase (AST) 16 U/L (13-40) Alanine Aminotransferase (ALT) 9 U/L (7-40) Alkaline Phosphatase 160 U/L (46-116) Total Protein 6.4 g/dL (5.7-8.2) Albumin 3.7 g/dL (3.2-4.8) Treponema pallidum Antibody Non-reactive (Negative) Urine Color Yellow (Yellow) Urine Clarity Turbid (Clear) Urine pH 5.5 (5.0-9.0) Urine Specific Morris 1.027 (1.001-1.035) Urine Protein 1+ (Negative) Urine Ketones Trace (Negative) Urine Blood Negative /uL (Negative) Urine Nitrite Negative (Negative) Urine Bilirubin Negative (Negative) Urine Urobilinogen Normal mg/dL (Negative) Urine Leukocyte Esterase 3+ /uL (Negative) Urine RBC 15 /hpf (0 - 4) Urine Microscopic WBC 35 /HPF (0-5) Urine Squamous Epithelial Cells Mod /hpf (<5) Urine Bacteria None seen /hpf (None Seen) Urine Mucus Few (None Seen) Urine Glucose Normal mg/dL (Normal) Urine Opiates Screen Neg (NEGATIVE) Urine Fentanyl Screen Neg (NEGATIVE) Urine Barbiturates Screen Neg (NEGATIVE) Urine Phencyclidine Screen Neg (NEGATIVE) Urine Amphetamines Screen Neg (NEGATIVE) Urine Benzodiazepines Screen Neg (NEGATIVE) Urine Cocaine Screen Neg (NEGATIVE) Urine Cannabinoids Screen Neg (NEGATIVE) Other Laboratory Tests 05/15/25 08:27 05/12/25 11:17 Brief Hx & Hospital Course: Ms Ireland was admitted on 05/14/25 at 39w 1d EGA for Repeat Section. She has good care, h/o section x1. and desires a repeat section. She had Section under Spinal anesthesia ( See Operative Note for details) Normal post-operative and course thus far; meeting milestones w/o any sign of infection or complication. Operations or Procedures Repeat Section Condition at Discharge: Stable Final Diagnosis/Problems List SAME,IUGR Secondary Diagnosis: Term - Delivered by C- Section Discharge Disposition: Home Discharge Instruct/Medications Diet: Regular Diet comment: Routine regular diet rich in fiber, protein, iron and vitamin C with adequate fluid intake. Activity: No Restrictions, As Tolerated Activity comment: Unrestricted. Advance as tolerated. Balance activities with rest periods. No heavy lifting, pushing or straining. Pelvic rest x 6weeks Follow Up/Referral: Follow up with OB Provider in 1 week Medications: [place], Ibuprofen, Docusate Sodium, Cephalexin, Metronidazole, Vitamin Scheduled Cephalexin Monohydrate (Cephalexin), 1 CAP PO QID Docusate Sodium (Colace), 1 CAP PO BID Metronidazole (Metronidazole), 500 MG PO BID Vit W/ Ferrous Fumara ( One Daily), 1 TAB PO DAILY, (Reported) Scheduled PRN Hydrocodone-Acetaminophen (Hydrocodone/Acetaminophen 10-325 mg), 1 TAB PO Q6HPRN PRN Ibuprofen (Ibuprofen), 800 MG PO TID PRN Discharge Statement: Post operative and self care instructions given. self care instructions given. emergency signs and symptoms including but not limited to pre-eclampsia precautions and signs of infection, PPH & of PPD reviewed with patient. Follow up with OB Provider in 1 week "Patient was advised to return to the ER or call 911 if any headaches, dizziness, shortness of breath, chest pain, abdominal pain, bleeding, fevers, or worsening of medical condition. Patient was counseled about treatment plan, medications, possible side effects, patientverbalized understanding. All questions were answered to the best of my ability. This discharge took greater then 30 minutes in planning, reviewing documentation, counseling the patient, and discussing with other team members." ASSESSMENT ASSESSMENT Hospital Course Ms Ireland was admitted on 05/14/25 at 39w 1d EGA for Repeat Section. She has good care, h/o section x1. and desires a repeat section. She had Section under Spinal anesthesia ( See Operative Note for details) Normal post-operative and course thus far; meeting milestones w/o any sign of infection or complication. Assessment SAME,IUGR S/P Repeat Section Visit Coding OBGYN Date of Service: May 16, 2025 Billing Provider: HARJINDER IRELAND CNM INTERNET APPLICATION DEVELOPER Common Visit Codes: 54180-EAY/OBS DISCH DAY <30MIN HARJINDER IRELAND CNM May 16, 2025 01:05
[2025-05-16 03:30] VITALS: BP 102/66; PULSE 88; RESP 17; TEMP 98.1; O2SAT 96
[2025-05-16 07:00] VITALS: BP 109/56; PULSE 78; RESP 18; TEMP 98; O2SAT 96
[2025-05-16 11:00] VITALS: BP 109/71; PULSE 96; RESP 16; TEMP 98.3; O2SAT 96
[2025-05-16 14:01] VITALS: TEMP 36.8
== END 2025-05-16 15:34 | disposition home or self-care (01) | DRG 540 ==
LOC: PREOBSVTOIN 08:52 → LDRP 05-14 03:56
PROVIDERS: ADMIT Obstetrics & Gynecology; ATTEND Obstetrics & Gynecology
PROC: 10D00Z1 Extraction of Products of Conception, Low, Open Approach (ICD-10-PCS; principal; 2025-05-14 14:01)
DX: O34.211 Maternal care for low transverse scar from previous cesarean delivery (principal); O36.5930 Maternal care for other known or suspected poor fetal growth, third trimester, not applicable or unspecified; Z3A.39 39 weeks gestation of pregnancy; Z37.0 Single live birth
CPT/HCPCS: 36415; 59025; 80053; 80307; 81001; 85025; 85610; 85730; 86780; 86850; 86900; 86901; 94760; 94762; 96360; 96361; 96365; 96366; 96374; G0378; J1100; J2250; J2405; J2590; J3490